=== PATIENT | male | born 2000 | race African-American/Black ===

== ENCOUNTER 2025-04-03 03:51 | Emergency (ER) | payer OTHER, MEDICAID ==
[~2025-04-03] VITALS: Ht 175.3 cm; Wt 95.9 kg
[2025-04-03 03:56] VITALS: BP 127/83; PULSE 68; RESP 18; TEMP 98.6; O2SAT 99
[2025-04-03 04:29] LABS: PLATELET COUNT (AUTO) 280 K/uL (150-450); RED BLOOD CELL COUNT(AUTO) 4.45 MIL/uL (4.50-5.90); RED CELL DISTRIBUTION WIDTH 12.6 % (11.5-14.5); WHITE BLOOD COUNT (AUTO) 4.8 K/uL (4.5-11.0)
[2025-04-03 04:50] LABS: CALCIUM, TOTAL 8.4 mg/dL (8.8-10.5); CREATININE 0.79 mg/dL (0.60-1.30); GLOMERULAR FILTR. RATE CALC > 60 mL/min (>60); GLUCOSE,RANDOM 93 mg/dL (70-110); SODIUM SERUM 141 mmol/L (136-145); UREA NITROGEN, BLOOD 18 mg/dL (7-18)
[2025-04-03 05:32] LABS: APPEARANCE,URINE CLEAR (CLEAR); GLUCOSE, URINE (UA) NEGATIVE (NEGATIVE); LEUKOCYTE ESTERASE ,URINE TRACE (NEGATIVE); NITRATE,URINE NEGATIVE (NEGATIVE); OCCULT BLOOD,URINE MODERATE (NEGATIVE); SPECIFIC GRAVITIY, URINE 1.030 (1.003-1.030)
[2025-04-03 05:58] LABS: SQUAMOUS EPITHELIAL CELL,UR Few /LPF (None Seen)
== END 2025-04-03 06:20 | disposition home or self-care (01) ==
LOC: EMS 03:51
DX: S31.21XA Laceration without foreign body of penis, initial encounter (principal); X58.XXXA Exposure to other specified factors, initial encounter; Y93.89 Activity, other specified; Y92.89 Other specified places as the place of occurrence of the external cause; Y99.8 Other external cause status
CPT/HCPCS: 80048; 81001; 85025; 99283